=== PATIENT | female | born 1955 ===

== ENCOUNTER 2022-06-23 15:15 | Emergency (ER) | payer OTHER ==
[~2022-06-23] VITALS: Ht 162.6 cm; Wt 55.8 kg
[2022-06-23] MEDS ORDERED: ROSUVASTATIN CA20 MG PO (16:38)
[2022-06-28] MEDS ORDERED: LEVSIN/SL0.125 MG SL (12:32)
[2022-06-28] MEDS ORDERED: PEPCID AC10 MG (12:32)
== END 2022-06-23 23:45 | disposition home or self-care (01) ==
LOC: ER 15:15
DX: K52.9 Noninfective gastroenteritis and colitis, unspecified (principal); Z88.0 Allergy status to penicillin